=== PATIENT | female | born 1950 | race Caucasian/White ===

== ENCOUNTER 2018-01-17 09:47 | Outpatient (CLI) | payer OTHER, SELFPAY ==
--- NOTE | 2018-01-17 09:34 | DI.RAD_ITS ---
SYMPTOM/DIAGNOSIS: LT HIP PAIN LEFT HIP: Two views. There is mild narrowing of the joint space. There also appears to be mild spurring of the acetabulum of the left hip. The hip joint is otherwise well maintained. The bones are intact and normally mineralized. The soft tissues are unremarkable. IMPRESSION: Mild degenerative changes of the left hip.
== END 2018-01-17 10:07 ==
PROVIDERS: Visit Provider Student in an Organized Health Care Education/Training Program
DX: M25.552 Pain in left hip (principal); M16.12 Unilateral primary osteoarthritis, left hip
CPT/HCPCS: 73502

== ENCOUNTER 2018-01-18 01:24 | Outpatient (CLI) | payer OTHER, SELFPAY ==
--- NOTE | 2018-01-18 07:33 | DI.RAD_ITS ---
SYMPTOMS/DIAGNOSIS: LEFT HIP PAIN, M25.559 FLUOROSCOPY OF THE LEFT HIP: Fluoroscopy Time: 0.10 min Fluoroscopy was provided for Dr. Roth while performing a left hip injection. A single hard copy image shows the needle projecting in the left hip joint space with contrast injected into the joint space. Please see procedure note for details.
[2018-01-18] MEDS: Omnipaque 300 MG/ML 10 ML BTL IJ (11:15)
[2018-01-18] MEDS: Bupivacaine 0.5% Pres-Free 10 ML VIAL 5 ML IJ (11:15)
[2018-01-18] MEDS: methylPREDNISolone ACETATE 80 MG/ML VIAL IM (11:16)
--- NOTE | 2018-01-18 12:25 | W.PROCNOTE ---
Date of service: 01/18/18 Time of Service: 10:25 Procedure Note Date of procedure: 01/18/18 Procedure: Left Hip Injection with Fluoroscopic Guidance Surgeon/Proceduralist/Physician: Jerome Roth Procedure Diagnosis: Left hip pain, probable femoral acetabular impinge Procedure Indications: Inez has had persistent pain of the LEFT hip and groin. Noninvasive measures have been tried. To serve as both diagnostic and therapeutic, an injection under fluoroscopy was recommended. I had discussed the risks of the procedure and the patient elected to proceed. Procedure Description: Inez was greeted in the flouroscopy room. The correct side was identified and the consent was reviewed with the patient and signed. The patient was then placed in the supine position on the fluoroscopy table. The LEFT hip was then prepped with Chloraprep. The anterolateral injection starting point was identiifed by bony landmarks and fluoroscopy. The skin and soft tissue in the tract of the injection was anesthetized with 1% Lidocaine. A spinal needle was then inserted deep into the hip joint at the level of the lateral femoral neck under fluoroscopic guidance. A small amount of Omnipaque solution was injected to confirm intraarticular placement. Once confirmed, the hip was injected with 6cc of 0.5% Bupivicaine and 80mg of Depo-Medrol. A bandaid was placed on the injection site. The patient tolerated the procedure well and noted improvement in pre-injection pain.
== END 2018-01-18 01:44 ==
PROVIDERS: PCP Internal Medicine; Visit Provider Student in an Organized Health Care Education/Training Program
DX: M25.552 Pain in left hip (principal)
CPT/HCPCS: 20610; 77002; J1040

== ENCOUNTER 2020-07-13 16:01 | Outpatient (CLI) | payer OTHER, SELFPAY ==
--- NOTE | 2020-07-13 14:45 | DI.RAD_ITS ---
EXAM: XR ANKLE RT COMPLETE CLINICAL HISTORY: s/p fall 3 weeks ago, pain. TECHNIQUE: 2D digital imaging was performed. COMPARISON: No exams were available for comparison FINDINGS: BONES: There is deformity seen of the distal aspect of the right 5th metatarsal. It is partially inc luded on the images. This may represent a fracture or destructive changes. An x-ray of the right fo ot is recommended for further evaluation. No other fracture or dislocation is identified. There is a small calcaneal spur. There is an enthesophyte at the Achilles insertion site. No bony destructiv e lesion is seen. JOINTS: The ankle mortise is normally aligned. SOFT TISSUE: Normal. IMPRESSION: Deformity seen at the edge of the film involving the distal aspect of the right 5th metatarsal. This may represent a fracture or destructive changes. An x-ray of the right foot is recommended for furt her evaluation. DATA REPOSITORY: RADIATION DOSE DELIVERED:
--- NOTE | 2020-07-13 14:45 | DI.RAD_ITS ---
EXAM: XR ARTHRITIS SERIES CLINICAL HISTORY: eval hand pain. TECHNIQUE: 2D digital imaging was performed. COMPARISON: No exams were available for comparison FINDINGS: BONES: No acute fracture is present. There are mild degenerative changes seen of the hand particularl y at the PIP and DIP joints of the right hand. The MCP joints are well maintained. No periarticular osteopenia is present. JOINTS: No dislocation present. SOFT TISSUE: No soft tissue calcifications are seen. IMPRESSION: Mild degenerative changes of the hands, right greater than left. DATA REPOSITORY: RADIATION DOSE DELIVERED:
== END 2020-07-13 16:02 | disposition home or self-care (01) ==
LOC: DIORS 16:01
PROVIDERS: PCP Internal Medicine; Referring Provider Internal Medicine; Visit Provider Physician Assistant Surgical
DX: M79.641 Pain in right hand (principal); M79.642 Pain in left hand; M19.041 Primary osteoarthritis, right hand; M19.042 Primary osteoarthritis, left hand; M25.571 Pain in right ankle and joints of right foot; R93.7 Abnormal findings on diagnostic imaging of other parts of musculoskeletal system
CPT/HCPCS: 73120; 73610

== ENCOUNTER 2022-09-15 16:48 | Outpatient (REF) | payer OTHER, SELFPAY ==
[2022-09-15 20:16] LABS: Abs Immature Grans 0.01 10^3/uL (0.0-0.06); Absolute Basophil Count 0.04 10^3/uL (0.0-0.2); Absolute Eosinophil Count 0.14 10^3/uL (0.0-0.7); Absolute Monocyte Count 0.54 10^3/uL (0.1-0.8); Absolute Neutrophil Count 4.59 10^3/uL (1.2-6.7); Basophils % 0.5; Eosinophils % 1.7; HCT 42.9 % (36.0-46.0); Immature Grans % 0.1; Lymphocytes % 33.7; MCHC 32.6 % (32.0-36.0); MCV 92 fL (80-95); MPV 9.7 fL (8.0-11.0); Monocytes % 6.7; Neutrophils % 57.3; Platelet Count 310 10^3/uL (130-400); RBC 4.67 10^6/uL (3.93-5.22); RDW 14.1 % (11.7-14.6); RDW-SD 47.4 fL; WBC 8.02 10^3/uL (4.4-10.8)
[2022-09-15 20:18] LABS: ESR 29 mm/hr (0-30)
[2022-09-15 20:24] LABS: ALT 39 U/L (14-59); AST 28 U/L (15-37); Alkaline Phosphatase 99 U/L (46-116); Anion Gap 10.6 mmol/L (3-11); BUN 12 mg/dL (7-18); Bilirubin, Total 0.3 mg/dL (0.2-1.0); CO2 24.4 mmol/L (21.0-32.0); CREATININE 0.8 mg/dL (0.55-1.02); Calcium 9.1 mg/dL (8.5-10.1); Calculated LDL 148 mg/dL (<100); Chloride 106 mmol/L (98-107); Cholesterol 246 mg/dL (<200); Estimated GFR 78.72 (mL/min/1.73m2); Glucose 85 mg/dL (74-106); HDL Cholesterol 70 mg/dL (40-60); Sodium 141 mmol/L (136-145); Total Protein 7.4 g/dL (6.4-8.2); Triglyceride 142 mg/dL (<150)
== END 2022-09-15 16:49 | disposition home or self-care (01) ==
LOC: NCHCN 16:48
PROVIDERS: PCP Internal Medicine; Visit Provider Family Medicine
DX: E78.5 Hyperlipidemia, unspecified (principal); M06.9 Rheumatoid arthritis, unspecified; Z72.0 Tobacco use
CPT/HCPCS: 80053; 80061; 85652; 85025

== ENCOUNTER 2022-09-29 01:03 | Outpatient (CLI) | payer OTHER, SELFPAY ==
--- NOTE | 2022-09-29 | DI.CTLCSR_ITS ---
Exam(s) CT CHEST LUNG CANCER SCREEN EXAM: CT CHEST LUNG CANCER SCREEN CLINICAL HISTORY: TOBACCO USE Z72.0 SCREENING FOR LUNG CANCER TECHNIQUE: Imaging Protocol: Axial computed tomography images with coronal and sagittal reformatted images were created and reviewed. Low dose screening protocol. COMPARISON: No exams were available for comparison FINDINGS: Tracheobronchial tree: No bronchiectasis or mucus plugging.. Mediastinum and Renee: No dominant adenopathy or fluid collection. Pulmonary parenchyma: No consolidation or dominant measurable mass. Minimal emphysematous changes. I nterstitial changes greater peripherally at the lung bases. Lung Nodules: None. Pleura: No effusion. No pneumothorax. Heart: The heart is not dilated. Mild coronary artery calcifications are seen. Aorta: Thoracic aorta non-dilated. Minimal atherosclerotic changes. Upper abdomen: Unremarkable. Bones: Unremarkable for age. Soft Tissues: Unremarkable. IMPRESSION: No suspicious pulmonary nodules. Lung RADS Cat 1 - Negative: No nodules and definitely benign nodules Lung-RADS 1.0 CATEGORIES: Category 0 - Prior chest CT exam(s) being located for comparison. Category 1 - Annual screening in 12 months. No nodules or definitely benign nodules. Category 2 - Annual screening in 12 months. Benign appearance. Nodules with low likelihood of becomin g active cancer. Category 3 - 6-month follow-up. Probably benign. Short-term follow-up suggested. Nodules with low lik elihood of becoming active cancer. Category 4A - 3-month follow-up and CT/PET if >8 mm in size. Suspicious finding. Findings which requi re additional testing. Category 4B - Findings which require additional testing and tissue sampling. Category 4X - Category 3 or 4 nodules with additional features or imaging findings that increases the suspicion of malignancy. Modifier S- Potentially clinically significant findings (non lung cancer) RADIATION DOSE DELIVERED: 74.01mGy.cm Total DLP DATA REPOSITORY: All CT scans at this facility are submitted to the National Radiology Data Registry (NRDR) Dose Index Registry (DIR) with the [employer] ([employer]). RADIATION OPTIMIZATION: All CT scans at this facility use at least one of these dose optimization te chniques: automated exposure control; mA and/or kV adjustment per patient size (includes targeted exa ms where dose is matched to clinical indication); or iterative reconstruction.
--- NOTE | 2022-09-29 11:52 | DI.MAMMO_ITS ---
Exam(s) MAMMO SCREENING EXAM: MAMMO SCREENING CLINICAL HISTORY: SCREENING FOR BREAST CANCER Z12.39 TECHNIQUE: Mammograms were interpreted according to the usual protocol including computer analysis w [employer] CAD system, tomosynthesis and C-view imaging. COMPARISON: The 2019 and 2020 outside exams FINDINGS: The breasts are composed of scattered fibroglandular densities, Breast Density category B. No suspicious masses or suspicious microcalcifications are seen. No skin thickening or abnormal axillary lymph nodes are seen. There has been no significant change from prior exams. IMPRESSION: BI-RADS Category 1, Negative mammogram Yearly screening mammography is recommended. Breast Density - Category B, scattered fibroglandular densities. A negative radiographic report should not delay biopsy if a dominant or clinically suspicious mass is present. Up to ten percent of cancers are not identified on mammography. A negative report may reinforce clinical impression. Adenosis and dense breasts may obscure an underlying neoplasm. False positive reports average 6 to 10%. Patient will receive a letter notifying them of these results.
== END 2022-09-29 01:23 ==
LOC: DI 01:04
PROVIDERS: PCP Internal Medicine; Visit Provider Family Medicine
DX: Z12.31 Encounter for screening mammogram for malignant neoplasm of breast (principal); Z13.820 Encounter for screening for osteoporosis; Z72.0 Tobacco use
CPT/HCPCS: 71271; 77063; 77067

== ENCOUNTER 2023-03-17 16:28 | Outpatient (REF) | payer OTHER, SELFPAY ==
[2023-03-17 16:17] LABS: Calculated LDL 104 mg/dL (<100); Cholesterol 204 mg/dL (<200); HDL Cholesterol 80 mg/dL (40-60); TSH 1.27 uIU/mL (0.36-3.74); Triglyceride 101 mg/dL (<150)
== END 2023-03-17 16:29 | disposition home or self-care (01) ==
LOC: NCHCN 16:28
PROVIDERS: PCP Family Medicine; Visit Provider Family Medicine
DX: E78.5 Hyperlipidemia, unspecified (principal); G62.9 Polyneuropathy, unspecified
CPT/HCPCS: 80061; 84443

== ENCOUNTER → 2023-09-21 00:37 | Outpatient (CLI) | payer MEDICARE, SELFPAY ==
--- NOTE | 2023-09-21 | DI.DEXA_ITS ---
Exam(s) XR DEXA BONE DENSITY W/WO MAYDA EXAM: XR DEXA BONE DENSITY W/WO MAYDA CLINICAL HISTORY: HALFWAY USE SYSTEMIC STEROID,z79.52 TECHNIQUE: COMPARISON: CR XR hip LT complete AP pelvis from 01/17/2018 FINDINGS: Lateral Spine Image: Unremarkable. No compression deformities identified. Left hip: Total T-Score: -1.1 Total Z-Score: 0.5 T- and Z-scores: Findings are consistent with osteopenia. There is no evidence of osteoporosis. Lumbar Spine: Total T-Score: -1.3 Total Z-Score: 1.0 T- and Z-scores: Findings are consistent with osteopenia. There is no evidence of osteoporosis. IMPRESSION: No evidence of osteoporosis.
--- NOTE | 2023-09-21 15:03 | DI.RAD_ITS ---
Exam(s) XR SACROILIAC JOINTS XR HIP LT COMPLETE AP PELVIS EXAM: XR HIP LT COMPLETE AP PELVIS and sacroiliac joints CLINICAL HISTORY: LT HIP PAIN, M25.552. TECHNIQUE: 2D digital imaging was performed of the sacroiliac joints and left hip. Five views were obtained. AP pelvis and lateral left hip views were obtained. COMPARISON: CR XR hip LT complete AP pelvis from 01/17/2018 FINDINGS: BONES: No acute fracture is present. No bony destructive lesion is seen. JOINTS: No dislocation present. There are marked degenerative changes seen now in the left hip with n ear complete loss of the superior joint space. There are osteophytes at the acetabular roof and the left femoral head. The right hip is well maintained. The sacroiliac joints are well maintained. No erosions or ankylosis is present. SOFT TISSUE: Normal. IMPRESSION: 1. Marked degenerative changes seen in the left hip. 2. Unremarkable sacroiliac joints. DATA REPOSITORY: RADIATION DOSE DELIVERED:
== END ==
PROVIDERS: PCP Family Medicine; Visit Provider Family Medicine
DX: Z79.52 Long term (current) use of systemic steroids (principal); M25.552 Pain in left hip; M16.12 Unilateral primary osteoarthritis, left hip
CPT/HCPCS: 77080; 72202; 73502

== ENCOUNTER 2023-10-09 04:35 | Outpatient (CLI) | payer MEDICARE, SELFPAY ==
[2023-10-09 12:21] LABS: Abs Immature Grans 0.03 10^3/uL (0.0-0.06); Absolute Basophil Count 0.07 10^3/uL (0.0-0.2); Absolute Eosinophil Count 0.27 10^3/uL (0.0-0.7); Absolute Lymphocyte Count 2.66 10^3/uL (1.2-3.4); Absolute Monocyte Count 0.77 10^3/uL (0.1-0.8); Absolute Neutrophil Count 5.71 10^3/uL (1.2-6.7); Basophils % 0.7 %; Eosinophils % 2.8 %; HCT 42.7 % (36.0-46.0); HGB 14.1 g/dL (11.2-15.7); Immature Grans % 0.3 %; MCH 30.9 pg (27.0-33.0); MCV 94 fL (80-95); Monocytes % 8.1 %; Neutrophils % 60.1 %; Platelet Count 328 10^3/uL (130-400); RBC 4.56 10^6/uL (3.93-5.22); RDW 15.7 % (11.7-14.6); RDW-SD 53.1 fL; WBC 9.51 10^3/uL (4.4-10.8)
[2023-10-09 12:34] LABS: ALT 42 U/L (14-59); AST 26 U/L (15-37); Albumin 3.7 g/dL (3.4-5.0); Alkaline Phosphatase 100 U/L (46-116); Anion Gap 8.7 mmol/L (3-11); BUN 12 mg/dL (7-18); Bilirubin, Total 0.77 mg/dL (0.2-1.0); CO2 29.3 mmol/L (21.0-32.0); Calcium 9.5 mg/dL (8.5-10.1); Chloride 106 mmol/L (98-107); Estimated GFR 59.86 (mL/min/1.73m2); Glucose 87 mg/dL (74-106); Potassium 3.9 mmol/L (3.5-5.1); Sodium 144 mmol/L (136-145); Total Protein 7.5 g/dL (6.4-8.2)
== END 2023-10-09 04:36 | disposition home or self-care (01) ==
LOC: LOS 04:35
PROVIDERS: PCP Family Medicine; Visit Provider Student in an Organized Health Care Education/Training Program
DX: M06.9 Rheumatoid arthritis, unspecified (principal); R06.02 Shortness of breath; Z78.0 Asymptomatic menopausal state; M85.80 Other specified disorders of bone density and structure, unspecified site; Z79.52 Long term (current) use of systemic steroids; M79.671 Pain in right foot; M79.672 Pain in left foot; M79.641 Pain in right hand; M79.642 Pain in left hand
CPT/HCPCS: 36415; 80053; 85025

== ENCOUNTER 2023-11-01 01:53 | Outpatient (RCR) | payer MEDICARE, SELFPAY ==
[2023-10-20] VITALS (7 sets, daily range): BP systolic 117–126; BP diastolic 76–85; PULSE 73–84; RESP 16–17; TEMP 36–36.4; O2SAT 97–99
[2023-10-20] MEDS: diphenhydrAMINE 25 MG CAP PO (09:19)
[2023-10-20] MEDS: Acetaminophen 325 MG TAB 650 MG PO (09:19)
[2023-10-20 09:26] LABS: HCT 41.6 % (36.0-46.0); HGB 13.7 g/dL (11.2-15.7); MCH 31.3 pg (27.0-33.0); MCHC 32.9 % (32.0-36.0); MCV 95 fL (80-95); MPV 8.4 fL (8.0-11.0); Platelet Count 284 10^3/uL (130-400); RBC 4.38 10^6/uL (3.93-5.22); RDW 15.7 % (11.7-14.6)
[2023-10-20] MEDS: methylPREDNISolone SUCC 125 MG VIAL 60 MG IVP (09:40)
[2023-10-20 09:43] LABS: ALT 53 U/L (14-59); AST 34 U/L (15-37); Albumin 3.5 g/dL (3.4-5.0); Alkaline Phosphatase 92 U/L (46-116); Anion Gap 8.5 mmol/L (3-11); BUN 13 mg/dL (7-18); CO2 26.5 mmol/L (21.0-32.0); CREATININE 0.9 mg/dL (0.55-1.02); Calcium 8.8 mg/dL (8.5-10.1); Chloride 107 mmol/L (98-107); Estimated GFR 67.92 (mL/min/1.73m2); Glucose 110 mg/dL (74-106); Potassium 3.5 mmol/L (3.5-5.1); Sodium 142 mmol/L (136-145); Total Protein 7.1 g/dL (6.4-8.2)
[2023-10-20] MEDS: inFLIXimab 300 MG in Normal Saline 250 ML 125 MG IVPB (09:45)
[2023-10-20] MEDS: Normal Saline Flush 10 ML SYR IVP (09:52)
[2023-11-01] VITALS (7 sets, daily range): BP systolic 92–123; BP diastolic 51–86; PULSE 82–96; RESP 16; TEMP 36.3–36.8; O2SAT 96–99
[2023-11-01] MEDS: diphenhydrAMINE 25 MG CAP PO (12:30)
[2023-11-01] MEDS: Normal Saline Flush 10 ML SYR IVP (12:31)
[2023-11-01] MEDS: Acetaminophen 325 MG TAB 650 MG PO (12:31)
[2023-11-01] MEDS: methylPREDNISolone SUCC 125 MG VIAL 60 MG IVP (12:31)
[2023-11-01] MEDS: inFLIXimab 300 MG in Normal Saline 250 ML 125 MG IVPB (13:10)
== END 2023-11-08 23:59 | disposition home or self-care (01) ==
LOC: INF 01:53
PROVIDERS: PCP Family Medicine; Visit Provider Family Medicine
DX: M06.09 Rheumatoid arthritis without rheumatoid factor, multiple sites (principal)
CPT/HCPCS: 80053; 85027; 96365; 96366; J1745; J2919

== ENCOUNTER 2023-11-21 02:19 | Outpatient (RCR) | payer MEDICARE, SELFPAY ==
[2023-11-09 00:19] VITALS: BP 107/70; PULSE 83; RESP 16; TEMP 36.5
[2023-11-21] VITALS (7 sets, daily range): BP systolic 101–123; BP diastolic 70–82; PULSE 76–95; RESP 16–17; TEMP 36.3–37.2; O2SAT 97–99
[2023-11-21] MEDS: Normal Saline Flush 10 ML SYR IVP (12:12)
[2023-11-21] MEDS: methylPREDNISolone SUCC 125 MG VIAL 60 MG IVP (12:12)
[2023-11-21] MEDS: diphenhydrAMINE 25 MG CAP PO (12:12)
[2023-11-21] MEDS: Acetaminophen 325 MG TAB 650 MG PO (12:12)
== END 2023-12-09 23:59 | disposition home or self-care (01) ==
LOC: INF 02:19
PROVIDERS: PCP Family Medicine; Visit Provider Family Medicine
DX: M06.09 Rheumatoid arthritis without rheumatoid factor, multiple sites (principal)
CPT/HCPCS: 96365; 96366; 96374; J2919; Q5104

== ENCOUNTER → 2023-11-23 10:51 | Outpatient (BNVA) | payer MEDICARE, SELFPAY | PROVIDERS: PCP Family Medicine; Referring Provider Family Medicine; Visit Provider Student in an Organized Health Care Education/Training Program | DX: M16.12 Unilateral primary osteoarthritis, left hip (principal); M70.62 Trochanteric bursitis, left hip; M76.32 Iliotibial band syndrome, left leg | CPT/HCPCS: 99203 ==

== ENCOUNTER 2024-01-08 02:44 | Outpatient (RCR) | payer MEDICARE, SELFPAY ==
[2023-12-10 00:09] VITALS: BP 107/70; PULSE 83; RESP 16; TEMP 36.5
[2024-01-08] MEDS: methylPREDNISolone SUCC 125 MG VIAL 60 MG IVP (09:29)
[2024-01-08] MEDS: diphenhydrAMINE 25 MG CAP PO (09:30)
[2024-01-08] MEDS: Acetaminophen 325 MG TAB 650 MG PO (09:30)
[2024-01-08 09:44] LABS: HCT 42.9 % (36.0-46.0); HGB 14.2 g/dL (11.2-15.7); MCH 31.8 pg (27.0-33.0); MCHC 33.1 % (32.0-36.0); MCV 96 fL (80-95); Platelet Count 268 10^3/uL (130-400); RBC 4.46 10^6/uL (3.93-5.22); RDW 16.1 % (11.7-14.6); RDW-SD 54.9 fL; WBC 10.85 10^3/uL (4.4-10.8)
[2024-01-08 10:00] LABS: ALT 39 U/L (14-59); AST 33 U/L (15-37); Albumin 3.5 g/dL (3.4-5.0); Alkaline Phosphatase 86 U/L (46-116); Anion Gap 11.4 mmol/L (3-11); BUN 14 mg/dL (7-18); Bilirubin, Total 0.56 mg/dL (0.2-1.0); CO2 28.6 mmol/L (21.0-32.0); Calcium 9.3 mg/dL (8.5-10.1); Chloride 105 mmol/L (98-107); Estimated GFR 59.86 (mL/min/1.73m2); Glucose 109 mg/dL (74-106); Potassium 3.8 mmol/L (3.5-5.1); Sodium 145 mmol/L (136-145)
[2024-01-08 10:07] VITALS: BP 99/66; PULSE 78; RESP 16; TEMP 36; O2SAT 96
[2024-01-08 10:15] VITALS: BP 103/69; PULSE 80; RESP 16; TEMP 36; O2SAT 98
[2024-01-08 10:30] VITALS: BP 107/69; PULSE 69; RESP 19; TEMP 36.1; O2SAT 100
[2024-01-08 10:45] VITALS: BP 106/73; PULSE 76; RESP 18; TEMP 36.5; O2SAT 98
[2024-01-08 11:05] VITALS: BP 107/74; PULSE 78; RESP 18; TEMP 36.2; O2SAT 98
[2024-01-08 12:15] VITALS: BP 115/80; PULSE 77; RESP 18; TEMP 36.3; O2SAT 99
[2024-01-08] MEDS: Normal Saline Flush 10 ML SYR IVP (12:27)
== END 2024-01-08 23:59 | disposition home or self-care (01) ==
LOC: INF 02:44
PROVIDERS: PCP Family Medicine; Visit Provider Family Medicine
DX: M06.09 Rheumatoid arthritis without rheumatoid factor, multiple sites (principal)
CPT/HCPCS: 80053; 85027; 96365; 96366; 96374; J2919; Q5104

== ENCOUNTER → 2024-01-25 10:44 | Outpatient (BNVA) | payer MEDICARE, SELFPAY | PROVIDERS: PCP Family Medicine; Referring Provider Family Medicine; Visit Provider Student in an Organized Health Care Education/Training Program | DX: M16.12 Unilateral primary osteoarthritis, left hip (principal) | CPT/HCPCS: 20611; J1010 ==

== ENCOUNTER → 2024-02-12 10:58 | Outpatient (BNVA) | payer MEDICARE, SELFPAY | PROVIDERS: PCP Family Medicine; Referring Provider Family Medicine; Visit Provider Psychiatry & Neurology Neurology | DX: G62.9 Polyneuropathy, unspecified (principal) | CPT/HCPCS: 99215 ==

== ENCOUNTER 2024-02-20 03:28 | Outpatient (RCR) | payer MEDICARE, SELFPAY ==
[2024-01-09 00:07] VITALS: BP 107/70; PULSE 83; RESP 16; TEMP 36.5
[2024-02-20] VITALS (7 sets, daily range): BP systolic 108–129; BP diastolic 57–85; PULSE 70–85; RESP 16–17; TEMP 35–36.5; O2SAT 95–100
[2024-02-20] MEDS: methylPREDNISolone SUCC 125 MG VIAL 60 MG IVP (10:10)
[2024-02-20] MEDS: Normal Saline Flush 10 ML SYR IVP (10:11)
[2024-02-20] MEDS: diphenhydrAMINE 25 MG CAP PO (10:11)
[2024-02-20 11:03] LABS: Vitamin B12 1513 pg/mL (193-986)
[2024-02-20 11:20] LABS: Hemoglobin A1C 5.6 % (<5.7)
[2024-02-21 13:32] LABS: Albumin 63.1 % (55.8-66.1); Albumin g/dL 4.7 g/dL (3.6-5.2); Total Protein 7.5 g/dL (6.3-8.2)
== END 2024-03-09 23:59 | disposition home or self-care (01) ==
LOC: INF 03:28
PROVIDERS: Psychiatry & Neurology Neurology; PCP Family Medicine; Visit Provider Family Medicine
DX: M06.09 Rheumatoid arthritis without rheumatoid factor, multiple sites (principal); G62.9 Polyneuropathy, unspecified; R73.9 Hyperglycemia, unspecified
CPT/HCPCS: 36415; 96365; 96366; 96375; 82607; 83036; 84165; J2919; Q5104

== ENCOUNTER 2024-03-26 02:46 | Outpatient (RCR) | payer MEDICARE, SELFPAY ==
[2024-03-10 00:18] VITALS: BP 107/70; PULSE 83; RESP 16; TEMP 36.5
[2024-03-26] VITALS (7 sets, daily range): BP systolic 94–118; BP diastolic 53–79; PULSE 68–85; RESP 14–18; TEMP 36–36.6; O2SAT 96–98
[2024-03-26] MEDS: methylPREDNISolone SUCC 125 MG VIAL 60 MG IVP (11:12)
[2024-03-26] MEDS: diphenhydrAMINE 25 MG CAP PO (11:12)
[2024-03-26] MEDS: Normal Saline Flush 10 ML SYR IVP (11:54)
[2024-03-31 08:25] LABS: Pyridoxal 5-Phosphate (PLP), P 15 mcg/L (5-50)
== END 2024-04-09 23:59 | disposition home or self-care (01) ==
LOC: INF 02:46
PROVIDERS: PCP Family Medicine; Visit Provider Family Medicine
DX: G62.9 Polyneuropathy, unspecified (principal); M06.09 Rheumatoid arthritis without rheumatoid factor, multiple sites
CPT/HCPCS: 36415; 96365; 96366; 84207; J2919; Q5104

== ENCOUNTER → 2024-05-02 08:58 | Outpatient (BNVA) | payer MEDICARE, SELFPAY | PROVIDERS: PCP Family Medicine; Referring Provider Family Medicine; Visit Provider Psychiatry & Neurology Neurology | DX: G62.9 Polyneuropathy, unspecified (principal) | CPT/HCPCS: 95908; 95923; 99213 ==

== ENCOUNTER 2024-05-07 02:52 | Outpatient (RCR) | payer MEDICARE, SELFPAY ==
[2024-04-10 00:10] VITALS: BP 107/70; PULSE 83; RESP 16; TEMP 36.5
[2024-05-07] VITALS (7 sets, daily range): BP systolic 106–120; BP diastolic 66–81; PULSE 79–86; RESP 14–16; TEMP 36.5–36.7; O2SAT 95–100
[2024-05-07] MEDS: diphenhydrAMINE 25 MG CAP PO (10:19)
[2024-05-07] MEDS: Acetaminophen 325 MG TAB 650 MG PO (10:20)
[2024-05-07] MEDS: methylPREDNISolone SUCC 125 MG VIAL 60 MG IVP (10:24)
[2024-05-07] MEDS: Normal Saline Flush 10 ML SYR IVP (10:27)
== END 2024-05-10 23:59 | disposition home or self-care (01) ==
LOC: INF 02:52
PROVIDERS: PCP Family Medicine; Visit Provider Family Medicine
DX: M06.09 Rheumatoid arthritis without rheumatoid factor, multiple sites (principal)
CPT/HCPCS: 96365; 96366; 96374; 96375; J2919; Q5104

== ENCOUNTER 2024-05-16 01:50 | Outpatient (CLI) | payer MEDICARE, SELFPAY ==
[2024-05-16 11:06] LABS: Abs Immature Grans 0.04 10^3/uL (0.0-0.06); Absolute Basophil Count 0.05 10^3/uL (0.0-0.2); Absolute Monocyte Count 0.85 10^3/uL (0.1-0.8); Absolute Neutrophil Count 8.04 10^3/uL (1.2-6.7); Basophils % 0.5 %; Eosinophils % 0.9 %; HGB 14.7 g/dL (11.2-15.7); Immature Grans % 0.4 %; Lymphocytes % 14.2 %; MCHC 32.7 % (32.0-36.0); MCV 101 fL (80-95); MPV 8.5 fL (8.0-11.0); Platelet Count 257 10^3/uL (130-400); RBC 4.46 10^6/uL (3.93-5.22); RDW 14.2 % (11.7-14.6); RDW-SD 52.7 fL; WBC 10.58 10^3/uL (4.4-10.8)
[2024-05-16 11:39] LABS: ALT 41 U/L (14-59); AST 25 U/L (15-37); Albumin 3.8 g/dL (3.4-5.0); Alkaline Phosphatase 90 U/L (46-116); Anion Gap 5.1 mmol/L (3-11); BUN 13 mg/dL (7-18); Bilirubin, Total 0.58 mg/dL (0.2-1.0); CO2 31.9 mmol/L (21.0-32.0); Calcium 9.6 mg/dL (8.5-10.1); Chloride 107 mmol/L (98-107); Estimated GFR 59.49 (mL/min/1.73m2); Glucose 101 mg/dL (74-106); Potassium 4.2 mmol/L (3.5-5.1); Sodium 144 mmol/L (136-145); Total Protein 7.2 g/dL (6.4-8.2)
[2024-05-20 23:07] LABS: Pyridoxal 5-Phosphate (PLP), P 46 mcg/L (5-50)
== END 2024-05-16 01:51 | disposition home or self-care (01) ==
PROVIDERS: PCP Family Medicine; Visit Provider Student in an Organized Health Care Education/Training Program
DX: M06.9 Rheumatoid arthritis, unspecified (principal); G62.9 Polyneuropathy, unspecified; R06.02 Shortness of breath; Z78.0 Asymptomatic menopausal state; M85.80 Other specified disorders of bone density and structure, unspecified site; Z79.52 Long term (current) use of systemic steroids; M79.671 Pain in right foot; M79.672 Pain in left foot; M79.641 Pain in right hand; M79.642 Pain in left hand
CPT/HCPCS: 36415; 80053; 84207; 85025

== ENCOUNTER 2024-06-18 02:43 | Outpatient (RCR) | payer MEDICARE, SELFPAY ==
[2024-06-18 09:20] VITALS: BP 109/76; PULSE 87; RESP 15; TEMP 36.3; O2SAT 97
[2024-06-18] MEDS: Acetaminophen 325 MG TAB 650 MG PO (09:20)
[2024-06-18] MEDS: diphenhydrAMINE 25 MG CAP PO (09:24)
[2024-06-18] MEDS: methylPREDNISolone SUCC 125 MG VIAL 60 MG IVP (09:26)
[2024-06-18 10:34] VITALS: BP 109/71; PULSE 89; RESP 14; TEMP 36.3; O2SAT 96
[2024-06-18 10:45] VITALS: BP 106/70; PULSE 79; RESP 14; TEMP 36.4; O2SAT 97
[2024-06-18 11:05] VITALS: BP 114/72; PULSE 79; RESP 14; TEMP 36.4; O2SAT 96
[2024-06-18 11:34] VITALS: BP 103/69; PULSE 79; RESP 12; TEMP 36.1; O2SAT 97
[2024-06-18] MEDS: Normal Saline Flush 5 ML SYR IVP (11:38)
== END 2024-07-08 23:59 | disposition home or self-care (01) ==
LOC: INF 02:43
PROVIDERS: PCP Family Medicine; Visit Provider Family Medicine
DX: M06.09 Rheumatoid arthritis without rheumatoid factor, multiple sites (principal)
CPT/HCPCS: 96365; 96366; J2919; Q5104

== ENCOUNTER 2024-07-05 00:47 | Outpatient (CLI) | payer MEDICARE, SELFPAY ==
--- NOTE | 2024-07-05 11:58 | DI.MAMMO_ITS ---
Exam(s) MAMMO SCREENING EXAM: MAMMO SCREENING CLINICAL HISTORY: SCREENING, Z12.39. TECHNIQUE: Bilateral full field digital CC and MLO mammographic images were obtained with 3D tomosyn thesis and utilizing computer aided detection (CAD). COMPARISON: Prior mammograms were reviewed. FINDINGS: There has been no significant change in the appearance and distribution of the fibroglandular tissue. There are no new spiculated masses nor malignant appearing microcalcification groups. There is no significant architectural distortion nor skin thickening-retraction. IMPRESSION: No radiographic evidence of malignancy. BI-RADS Category 1 - Negative Breast Density - Category B - Scattered areas of fibroglandular density Breast density Category C or D implies that the patient has dense breast tissue. Dense breast tissue can make it harder to find cancer on a mammogram. Dense breast tissue is also associated with an incr eased risk of breast cancer. This information about the result of the mammogram report was provided to the patient to raise their awareness. Use this report when you speak with the patient about their risks for breast cancer, which includes their family history. At that time, you may recommend additional screening tests (Ultrasoun d or MRI) as these tests may add significant information. A negative radiographic report should not delay biopsy if a dominant or clinically suspicious mass is present. Up to ten percent of cancers are not identified on mammography. A negative report may reinforce clinical impression. Adenosis and dense breasts may obscure an underlying neoplasm. False positive reports average 6 to 10%. Patient will receive a letter notifying them of these results.
== END 2024-07-05 01:07 ==
LOC: DI 00:47
PROVIDERS: PCP Family Medicine; Visit Provider Family Medicine
DX: Z12.31 Encounter for screening mammogram for malignant neoplasm of breast (principal); R92.323 Mammographic fibroglandular density, bilateral breasts
CPT/HCPCS: 77063; 77067

== ENCOUNTER 2024-08-01 01:59 | Outpatient (RCR) | payer MEDICARE, SELFPAY ==
[2024-08-01] VITALS (7 sets, daily range): BP systolic 105–126; BP diastolic 73–81; PULSE 79–86; RESP 18–19; TEMP 36–36.1; O2SAT 95–98
[2024-08-01] MEDS: Acetaminophen 325 MG TAB 650 MG PO (10:13)
[2024-08-01] MEDS: methylPREDNISolone SUCC 125 MG VIAL 60 MG IVP (10:14)
[2024-08-01] MEDS: diphenhydrAMINE 25 MG CAP PO (10:14)
[2024-08-01] MEDS: Normal Saline Flush 5 ML SYR IVP (10:14)
[2024-08-01 10:47] LABS: Abs Immature Grans 0.03 10^3/uL (0.0-0.06); Absolute Basophil Count 0.06 10^3/uL (0.0-0.2); Absolute Eosinophil Count 0.37 10^3/uL (0.0-0.7); Absolute Lymphocyte Count 2.28 10^3/uL (1.2-3.4); Absolute Monocyte Count 0.91 10^3/uL (0.1-0.8); Absolute Neutrophil Count 5.16 10^3/uL (1.2-6.7); Basophils % 0.7 %; Eosinophils % 4.2 %; HCT 47.2 % (36.0-46.0); HGB 15.9 g/dL (11.2-15.7); Immature Grans % 0.3 %; Lymphocytes % 25.9 %; MCH 32.3 pg (27.0-33.0); MCHC 33.7 % (32.0-36.0); MCV 96 fL (80-95); MPV 8.7 fL (8.0-11.0); Monocytes % 10.3 %; Neutrophils % 58.6 %; Platelet Count 269 10^3/uL (130-400); RBC 4.92 10^6/uL (3.93-5.22); RDW 14.4 % (11.7-14.6); RDW-SD 49.7 fL; WBC 8.81 10^3/uL (4.4-10.8)
[2024-08-01 11:03] LABS: ALT 39 U/L (14-59); AST 25 U/L (15-37); Albumin 3.9 g/dL (3.4-5.0); Alkaline Phosphatase 97 U/L (46-116); Anion Gap 12.1 mmol/L (3-11); BUN 22 mg/dL (7-18); Bilirubin, Total 0.7 mg/dL (0.2-1.0); CO2 27.9 mmol/L (21.0-32.0); Calcium 9.6 mg/dL (8.5-10.1); Chloride 106 mmol/L (98-107); Estimated GFR 59.49 (mL/min/1.73m2); Glucose 91 mg/dL (74-106); Potassium 3.6 mmol/L (3.5-5.1); Sodium 146 mmol/L (136-145); Total Protein 7.6 g/dL (6.4-8.2)
== END 2024-08-07 23:59 | disposition home or self-care (01) ==
LOC: INF 01:59
PROVIDERS: Student in an Organized Health Care Education/Training Program; PCP Family Medicine; Visit Provider Family Medicine
DX: M06.09 Rheumatoid arthritis without rheumatoid factor, multiple sites (principal)
CPT/HCPCS: 36415; 80053; 96365; 96366; 85025; J2919; Q5104

== ENCOUNTER → 2024-08-07 13:40 | Outpatient (BNVA) | payer MEDICARE, SELFPAY | PROVIDERS: PCP Family Medicine; Referring Provider Family Medicine; Visit Provider Physician Assistant | DX: M16.12 Unilateral primary osteoarthritis, left hip (principal) | CPT/HCPCS: 20611; J1010 ==

== ENCOUNTER 2024-09-12 03:16 | Outpatient (RCR) | payer MEDICARE, SELFPAY ==
[2024-09-12] VITALS (7 sets, daily range): BP systolic 106–123; BP diastolic 70–78; PULSE 71–85; RESP 18–19; TEMP 36.1–36.4; O2SAT 96–98
[2024-09-12] MEDS: Acetaminophen 325 MG TAB 650 MG PO (10:12)
[2024-09-12] MEDS: diphenhydrAMINE 25 MG CAP PO (10:13)
[2024-09-12] MEDS: methylPREDNISolone SUCC 125 MG VIAL 60 MG IVP (10:14)
[2024-09-12] MEDS: Normal Saline Flush 10 ML SYR IVP (11:13)
== END 2024-10-07 23:59 | disposition home or self-care (01) ==
LOC: INF 03:16
PROVIDERS: PCP Family Medicine; Visit Provider Family Medicine
DX: M06.09 Rheumatoid arthritis without rheumatoid factor, multiple sites (principal)
CPT/HCPCS: 96365; 96366; J2919; Q5104

== ENCOUNTER 2024-10-24 01:13 | Outpatient (RCR) | payer MEDICARE, SELFPAY ==
[2024-10-24] VITALS (7 sets, daily range): BP systolic 116–134; BP diastolic 75–92; PULSE 71–80; RESP 18–20; TEMP 35.7–36.4; O2SAT 95–100
[2024-10-24] MEDS: diphenhydrAMINE 25 MG CAP PO (10:35)
[2024-10-24] MEDS: Acetaminophen 325 MG TAB 650 MG PO (10:35)
[2024-10-24] MEDS: Normal Saline Flush 10 ML SYR IVP (10:36)
[2024-10-24] MEDS: Water,Injection,Bacteriostatic 30 ML VIAL (10:36)
[2024-10-24] MEDS: methylPREDNISolone SUCC 125 MG VIAL 60 MG IVP (10:36)
[2024-10-24 11:19] LABS: Abs Immature Grans 0.03 10^3/uL (0.0-0.06); HCT 40.6 % (36.0-46.0); HGB 13.3 g/dL (11.2-15.7); Immature Grans % 0.3 %; MCH 31.7 pg (27.0-33.0); MCHC 32.8 % (32.0-36.0); MCV 97 fL (80-95); MPV 9.1 fL (8.0-11.0); Platelet Count 269 10^3/uL (130-400); RBC 4.20 10^6/uL (3.93-5.22); RDW 14.6 % (11.7-14.6); RDW-SD 51.2 fL; WBC 9.14 10^3/uL (4.4-10.8)
[2024-10-24 11:38] LABS: ALT 30 U/L (14-59); AST 17 U/L (15-37); Albumin 3.4 g/dL (3.4-5.0); Alkaline Phosphatase 86 U/L (46-116); Anion Gap 11.5 mmol/L (3-11); BUN 19 mg/dL (7-18); Bilirubin, Total 0.6 mg/dL (0.2-1.0); CO2 24.5 mmol/L (21.0-32.0); Calcium 8.8 mg/dL (8.5-10.1); Chloride 106 mmol/L (98-107); Estimated GFR 77.75 (mL/min/1.73m2); Glucose 95 mg/dL (74-106); Potassium 3.8 mmol/L (3.5-5.1); Sodium 142 mmol/L (136-145); Total Protein 6.6 g/dL (6.4-8.2)
== END 2024-11-07 23:59 | disposition home or self-care (01) ==
LOC: INF 01:13
PROVIDERS: Student in an Organized Health Care Education/Training Program; PCP Family Medicine; Visit Provider Family Medicine
DX: M06.09 Rheumatoid arthritis without rheumatoid factor, multiple sites (principal)
CPT/HCPCS: 80053; 96365; 96366; 96374; 96375; 85025; J2919; Q5104

== ENCOUNTER → 2024-11-08 10:56 | Outpatient (BNVA) | payer MEDICARE, SELFPAY | PROVIDERS: PCP Family Medicine; Referring Provider Family Medicine; Visit Provider Physician Assistant | DX: M16.12 Unilateral primary osteoarthritis, left hip (principal) | CPT/HCPCS: 20611; J1010 ==

== ENCOUNTER 2025-01-22 01:52 | Outpatient (CLI) | payer MEDICARE, SELFPAY ==
[2025-01-22] MEDS: methylPREDNISolone SUCC 40 MG VIAL 60 MG IVP (09:44)
[2025-01-22] MEDS: Normal Saline Flush 10 ML SYR IVP (09:44)
[2025-01-22] MEDS: diphenhydrAMINE 25 MG CAP PO (09:45)
[2025-01-22] MEDS: Acetaminophen 325 MG TAB 650 MG PO (09:45)
[2025-01-22 10:20] LABS: Abs Immature Grans 0.02 10^3/uL (0.0-0.06); HCT 44.9 % (36.0-46.0); HGB 14.6 g/dL (11.2-15.7); Immature Grans % 0.2 %; MCH 30.5 pg (27.0-33.0); MCHC 32.5 % (32.0-36.0); MCV 94 fL (80-95); MPV 8.8 fL (8.0-11.0); Platelet Count 306 10^3/uL (130-400); RBC 4.79 10^6/uL (3.93-5.22); RDW 13.6 % (11.7-14.6); RDW-SD 46.7 fL; WBC 9.65 10^3/uL (4.4-10.8)
[2025-01-22 10:35] LABS: ALT 34 U/L (14-59); AST 22 U/L (15-37); Albumin 3.8 g/dL (3.4-5.0); Alkaline Phosphatase 80 U/L (46-116); Anion Gap 11.6 mmol/L (3-11); BUN 17 mg/dL (7-18); Bilirubin, Total 0.5 mg/dL (0.2-1.0); CO2 27.4 mmol/L (21.0-32.0); Calcium 9.3 mg/dL (8.5-10.1); Chloride 105 mmol/L (98-107); Estimated GFR 59.12 (mL/min/1.73m2); Glucose 93 mg/dL (74-106); Potassium 3.6 mmol/L (3.5-5.1); Sodium 144 mmol/L (136-145); Total Protein 7.5 g/dL (6.4-8.2)
== END 2025-01-22 01:53 | disposition home or self-care (01) ==
PROVIDERS: Student in an Organized Health Care Education/Training Program; PCP Family Medicine; Visit Provider Family Medicine
DX: M06.09 Rheumatoid arthritis without rheumatoid factor, multiple sites (principal)
CPT/HCPCS: 36415; 80053; 96365; 96374; 96375; 85025; J2919; J3262

== ENCOUNTER 2025-01-31 11:49 | Outpatient (CLI) | payer MEDICARE, SELFPAY ==
--- NOTE | 2025-01-31 11:00 | DI.RAD_ITS ---
Exam(s) XR HIP LT COMPLETE AP PELVIS EXAM: XR HIP LT COMPLETE AP PELVIS CLINICAL HISTORY: OA L HIP. TECHNIQUE: 2D digital imaging was performed. Two views. COMPARISON: CR XR HIP LT COMPLETE AP PELVIS from 09/21/2023 FINDINGS: BONES: No acute fracture is present. No bony destructive lesion is seen. JOINTS: No dislocation present. The SI joints and pubic symphysis are intact. There is severe narrowing of the left hip joint space, with a [id number] appearance. There are multiple subchondral cysts on both sides of the joint is where less periarticular spurring. Findings have progressed when compared with the prior exam. The right hip joint space is maintained. SOFT TISSUE: Normal. IMPRESSION: Severe degenerative changes of the left hip. DATA REPOSITORY: RADIATION DOSE DELIVERED:
== END 2025-01-31 11:50 | disposition home or self-care (01) ==
LOC: DIORS 11:49
PROVIDERS: PCP Family Medicine; Visit Provider Physician Assistant
DX: Z01.818 Encounter for other preprocedural examination (principal); M16.12 Unilateral primary osteoarthritis, left hip
CPT/HCPCS: 99024; 73502

== ENCOUNTER 2025-02-26 05:49 | Day surgery (SDC) | payer MEDICARE, SELFPAY ==
[2025-02-26] VITALS (25 sets, daily range): BP systolic 89–145; BP diastolic 50–88; PULSE 74–88; RESP 10–34; TEMP 36–36.5; O2SAT 95–100; BMI 27.1
[2025-02-26] MEDS: Celecoxib 200 MG CAP 400 MG PO (06:18)
[2025-02-26] MEDS: Acetaminophen 500 MG TAB 1000 MG PO ×2 (06:18→10:37)
[2025-02-26] MEDS: Lactated Ringers 1,000 ML 80 ML IV (06:31)
--- NOTE | 2025-02-26 06:58 | W.ANESPRE ---
General Info Date of Service Date Performed: 02/26/25 Height: 5 ft 4.5 in Weight: 72.9 kg Body Mass Index (BMI): 27.1 Surgical Procedure: Operation Date: 02/26/25 07:50 Proposed Procedure Side Surgeon p Hip Total Hip Anterior, ACTIS Left Jerome Roth MD Meds Allergies and Home Medications Allergies Allergy/AdvReac Type Severity Reaction Status Date / Time No Known Allergies Allergy Verified 02/26/25 06:14 Home Medication Medication Instructions Recorded cod liver oil 1 cap PO DAILY 01/17/18 folic acid 1 mg tablet 1 mg PO DAILY 01/17/18 vitamin B complex (B Complex 1 1 tab PO DAILY 01/17/18 tablet) atorvastatin 10 mg tablet 10 mg PO DAILY 07/13/20 methotrexate (PF) 10 mg/0.4 mL 10 mg subcut QWEEK 03/27/23 subcutaneous auto-injector prednisone 5 mg tablet 5 mg PO DAILY 01/25/24 calcium carbonate 600 mg PO DAILY 07/05/24 cholecalciferol (vitamin D3) 25 25 mcg PO DAILY 08/07/24 mcg (1,000 unit) capsule hydroxychloroquine 200 mg tablet 200 mg PO DAILY 01/31/25 (Plaquenil) tocilizumab 162 mg/0.9 mL 162 mg subcut QMONTH 01/31/25 subcutaneous pen injector Current Visit Medications: Current Medications Generic Name Dose Route Start Last Admin Trade Name Freq PRN Reason Stop Dose Admin Acetaminophen 1,000 mg 02/26/25 06:00 02/26/25 06:18 Acetaminophen 500 Mg Tab PO 02/26/25 23:59 1,000 mg PREOP NARCISO Administration Celecoxib 400 mg 02/26/25 06:00 02/26/25 06:18 Celecoxib 200 Mg Cap PO 02/26/25 23:59 400 mg PREOP NARCISO Administration Ringer's Solution 1,000 mls @ 80 mls/hr 02/26/25 06:00 02/26/25 06:31 IV 02/26/25 23:59 80 mls/hr INFUSION NARCISO Administration Cefazolin Sodium/Dextrose 2 gm in 50 mls @ 100 mls/hr 02/26/25 06:00 Ancef Duplex IVPB 02/26/25 23:59 PREOP NARCISO Tranexamic Acid/Sodium Chloride 1,000 mg in 100 mls @ 600 mls/hr 02/26/25 06:00 IVPB 02/26/25 23:59 PREOP NARCISO IV Miscellaneous Supplies 1 each 02/26/25 06:00 Iv Access IV 02/26/25 23:59 DIRECTED NARCISO Sodium Chloride 0 ml 02/26/25 06:00 Normal Saline Flush 10 Ml Syr IV 02/26/25 23:59 PRN PRN Sodium Chloride 0 ml 02/26/25 06:00 Normal Saline 10 Ml Vial IJ 02/26/25 23:59 DIRECTED PRN Sterile Water 0 ml 02/26/25 06:00 Water,Injection,Sterile 10 Ml Vial IJ 02/26/25 23:59 DIRECTED PRN PFSH Active Problems Active Problems: Problem Status Onset Code Small fiber neuropathy Acute G62.9 Neuropathy Acute G62.9 Iliotibial band syndrome of left side Acute M76.32 Trochanteric bursitis, left hip Acute M70.62 Osteoarthritis of left hip Acute M16.12 Right ankle sprain Acute S93.401A Rheumatoid arthritis flare Acute M06.9 Bilateral hand pain Acute M79.641, M79.642 Medical History Medical History Bunion Rheumatoid arthritis Interstitial lung disease Residual hemorrhoidal skin tags Carpal tunnel syndrome Insomnia Tobacco user Hyperlipidemia Surgical History Surgical History S/P excision of ganglion cyst elbow Tobacco Smoking/Tobacco Use Status: Former Tobacco Use Passive smoking exposure: Yes Alcohol Alcohol Intake: current Alcohol intake frequency: a few times a week Substance Use Substance use: Occasionally Substance use type: marijuana Details: patient used marijuana before bed 02/25 Vital Signs and Lab Results Vital Signs Most Recent Vital Signs in EMR: Most Recent Vital Signs Temp Pulse Resp BP Pulse Ox 36.3 C L 75 16 118/74 96 02/26/25 06:08 02/26/25 06:08 02/26/25 06:08 02/26/25 06:08 02/26/25 06:08 Anesthesia Assessment and Plan Anesthesia History Personal History: No History of Anesthesia Complications Family History: No Family History of Anesthesia Complications Exercise Tolerance Exercise Tolerance: Metabolic Equivalents>4 Pertinent Negatives Pertinent Negatives: No Major Cardiovascular Symptoms or Complaints and No Major Pulmonary Symptoms or Complaints Cardiac & Pulmonary Exam Cardiac Exam: Normal S1/S2 Heart Sounds Pulmonary Exam: Clear Bilateral Breath Sounds Implantable Cardiac Device Does patient have a Pacemaker or an ICD?: No Airway Exam Known Difficult Airway: No Mallampati Class: 3 Mouth Opening: Narrow (< 3cm) Thyromental Distance: Greater than 3 cm Neck Range of Motion: Full ROM Neck Circumference: Normal Teeth Condition: Normal Dentition ASA Classification ASA Score: ASA 2 Emergency Case?: No NPO Status NPO Status: NPO Clears >2 hours, Solids >8 hours Anesthesia Plan Resuscitation Status: Full Code Anesthesia Technique: Spinal Anesthesia Airway Planned: Natural Airway Monitors Used: Standard Monitors
--- NOTE | 2025-02-26 07:23 | W.PM.DSUDISC ---
Date of service: 02/26/25 Discharge Plan Disposition Patient Disposition: Home Condition: Good Discharge Details Reason For Visit: L THR Attending Provider: Jerome Roth Primary Care Provider: Isaura Pagan Home Meds and New Rx's Prescriptions: New acetaminophen 500 mg tablet 1,000 mg PO TID Qty: 90 3RF aspirin 81 mg tablet,delayed release (DR/EC) 81 mg PO BID Qty: 60 0RF celecoxib 200 mg capsule 200 mg PO BID Qty: 60 0RF docusate sodium 100 mg capsule 100 mg PO BID PRNQty: 28 0RF pantoprazole 40 mg tablet,delayed release (DR/EC) 40 mg PO DAILY Qty: 14 0RF oxycodone 5 mg tablet 5 mg PO Q4H MDD 6 tabs PRN (Reason: pain) Qty: 12 0RF Continued vitamin B complex [B Complex 1] tablet 1 tab PO DAILY cod liver oil capsule 1 cap PO DAILY folic acid 1 mg tablet 1 mg PO DAILY prednisone 5 mg tablet 5 mg PO DAILY cholecalciferol (vitamin D3) 25 mcg (1,000 unit) capsule 25 mcg PO DAILY tocilizumab 162 mg/0.9 mL pen injector 162 mg subcut QMONTH atorvastatin 10 mg tablet 10 mg PO DAILY methotrexate (PF) 10 mg/0.4 mL auto-injector 10 mg subcut QWEEK calcium carbonate 600 mg calcium (1,500 mg) tablet 600 mg PO DAILY hydroxychloroquine [Plaquenil] 200 mg tablet 200 mg PO DAILY Discharge Instructions Additional Instructions: Total Hip Discharge Instructions Activity: The most important activity is to walk. You should try to take short walks a few times a day. You have no restrictions on movement or positioning, but do not try to force what you do. You will find some stiffness and weakness with hip flexion (lifting your knee). Do not try to strengthen this too early, continue to practice walking and stairs and this will come. - Outpatient physical therapy can be helpful to help return you to a normal gait and improve your flexibility and strength. This can start around 2 weeks. For some patients, it´s not necessary. Usually this is determined at the time of discharge or at the first post-operative visit. - You should wear the ROCIO hose on both legs for 2 weeks. Dressing: Keep the surgical dressing in place for at least one week. After the first week it may be removed and replace with light gauze and tape or nothing. It may get wet after 3 days but avoid soaking the dressing. If it gets wet, just lightly pat dry. It is important to always keep some gauze between skin folds, especially when you are sitting. Spend some time with the wound exposed when you are lying flat as the incision does wrinkle onto itself. Medications: - You should take Tylenol and an anti-inflammatory Celebrex as your primary pain control medications. If the Celebrex is too expensive or not covered, please call the office for another alternative (Advil/Ibuprofen or Naproxen/Aleve). - You have been prescribed a stronger pain medication Oxycodone for breakthrough pain, take as needed as prescribed. - You have also been prescribed a stomach acid reduction agent Pantoprozole to help reduce stomach acid and reflux. - You will be taking Aspirin 81mg twice a day for DVT prevention unless instructed otherwise. - If you have constipation you should take Colace or Miralax (both [id number]-hog-[id number]). It takes most people 3-4 days to have a bowel movement. Follow-up: 2 weeks If you have any acute concerns or questions, please do not hesitate to contact the office at [phone]. You may contact Dr. Roth with any questions after hours through the hospital at [phone] or on his cell phone at [phone]. Stand Alone Forms: Anesthesia Discharge Inst., Nickie Brannon ([facility]), Portal Information Referrals: Jerome Roth MD [ [facility] STAFF PHYSICIAN, Orthopaedic Surgical] - 03/10/25 2:00 pm Equipment/Supplies: Walker Activity:: Activity as Tolerated Shower/Bathe:: 72 hours Diet:: As Tolerated Discharge Orders Discharge Orders: Discharge Order (Routine); Ordered 02/26/25 Ordered By: Saleem Dixon DS: Diagnosis Discharge Diagnosis (1) Osteoarthritis of left hip: Status: Acute
[2025-02-26] MEDS: ceFAZolin 2 GM/50 ML BAG IVPB (07:59)
[2025-02-26] MEDS: TRANEXAMIC ACID/SOD. CHL. 1,000 MG/100 ML BAG 600 MG IVPB (08:04)
[2025-02-26] MEDS: EPINEPHrine 1 MG/ML AMP pres-free (08:21)
[2025-02-26] MEDS: Ketorolac 30 MG/ML VIAL (08:22)
[2025-02-26] MEDS: ROPIvacaine 0.2% 200 MG/100 ML BAG (08:22)
--- NOTE | 2025-02-26 09:00 | DI.RAD_ITS ---
Exam(s) XR HIP LT IN OR EXAM: XR HIP LT IN OR CLINICAL HISTORY: Osteoarthritis of left hip. TECHNIQUE: 2D and realtime digital imaging was performed. COMPARISON: CR XR HIP LT COMPLETE AP PELVIS from 01/31/2025 FINDINGS: Hard copy images show placement of the left hip prosthesis. The alignment appears satisfactory. Please see procedure note for details. Fluoro time: 25.6seconds RADIATION DOSE DELIVERED: Ka,r=2.6 mGy
--- NOTE | 2025-02-26 09:16 | W.PM.OP ---
Operative Note Operative Note PRE-OP DIAGNOSIS: Left Hip Osteoarthritis POST-OP DIAGNOSIS: same PROCEDURE: Left Anterior Total Hip Arthroplasty with Intraoperative Navigation SURGEON: Jerome Roth COMPUTER SYSTEMS DESIGNER: Saleem Dixon ANESTHESIA TYPE: Spinal Refer to Anesthesia Record ESTIMATED BLOOD LOSS: 100 PATHOLOGY: none sent TOURNIQUET TIME: 0 COMPLICATIONS: None Patient was transported to: PACU Patient's condition: stable Implants: 1. Depuy Emphasys Acetabular Component, 48mm 2. Depuy Acetabular Liner, 21n78gr 3. Depuy Actis High Offset Collared Femoral Stem, Size 5 4. Depuy Altrx Ceramic Femoral Head, Size 36+1.5mm Indications: I have seen Inez in clinic for symptoms of hip arthritis, confirmed with radiographic findings. Inez has exhausted nonoperative methods and was having significant limitations in daily function and desired better function and less pain. I discussed the technical details of a hip replacement. I explained the risks of the procedure to include, but not limited to, bleeding, infection, pain, stiffness, fracture, damage to nerves and vessels, damage to muscles and tendons, loosening, instability, leg length inequality, need for repeat procedure, blood clot and cardiopulmonary demise. Despite these risks, she elected to proceed. Findings: There was significant signs of arthritis throughout the hip. Procedure Description: Inez was greeted in the preoperative holding area where the correct side was identified and marked. The consent was reviewed with the patient and signed. The history and physical was updated. All questions were answered. She was taken back to the operating room. A spinal anesthestic was then administered. The feet were wrapped with cast padding and Coban and then placed into the boot liners and then into the boots. Care was taken to protect the skin and make sure the heels were fully down and the boots were stable. The patient was then positioned onto the HANA table. Both legs were held in a neutral position. SCDs were applied. The patient was then slid down onto a peroneal post. Prophylactic antibiotics in the form of Cefazolin were administered. 1g of Tranxemic Acid was given intravenously within 30 minutes of incision. The left leg was then prepped with Chloraprep and draped in a standard fashion. A second prep with Chloraprep was performed prior to placement of a shower-curtain type drape with Iodine impregnated skin protection. A timeout to confirm correct identity, side and site, procedure, allergies, anesthesia, and medical concerns was performed. An obliquely oriented incision was made starting lateral to the ASIS and running distal over the Tensor Fascia Estephanie (TFL) muscle belly toward the fibular head, approximately 10cm. The skin and soft tissue was dissected sharply, through Suzan´s fascia, and to the fascia of the TFL. With the fascia and superior border of the IT band identified, the fascia was incised with a new knife just above any perforators from the IT band. The TFL muscle belly was bluntly dissected away from the fascia and moved laterally. The fat between TFL and rectus was identified to ensure the dissection was not within the TFL. Blunt dissection created space between abductors and the capsule and retractor was placed over the lateral femoral neck. The fibers of the rectus femoris tendon were identified and these were freed from the anterior capsule. A second cobra retractor was placed around the medial femoral neck. The TFL was further retracted laterally to show the deep fascia. Careful dissection through this layer identified three main crossing vessels of the lateral femoral circumflex. These were cauterized in multiple locations and then cut without any noticeable bleeding. The TFL was further released bluntly from the deep fascia to expose anterior hip capsule and fat The soft tissue orthopaedic retractor was then placed beneath the TFL and against sartorius and medial soft tissues to protect and retract the soft tissues. A T-capsulotomy was then performed starting at the superior lateral acetabulum and moving distally to the intertrochanteric ridge. These capsular flaps were tagged with a No. 1 Vicryl and elevated from within. The capsular flaps were released to the shoulder of the lateral neck and to the lesser trochanter to give excellent visualization of the proximal femur. A neck osteotomy was performed using an oscillating saw based on preoperative templates. This cut started in the shoulder and of the lateral neck and exited medially. The saw was at all times directed medially to avoid injury to the greater trochanter. Gross traction was applied to the leg and the osteotomy opened. The femoral head was removed with a corkscrew, making sure to protect the TFL on its exit. Traction was released after head removal. This was measured on the back table to determine the starting reamer size. Portions of the rectus obscuring visualization were minimally elevated off the superior acetabulum. An anterior retractor was placed over the anterior wall between capsule and labrum and attached to the Gripper retraction system. The femur was rotated to 90 degrees and medial capsule was fully released until the lesser trochanter was palpable and visible; the femur was returned to 30 degrees. A posterior retractor was placed similarly between capsule and labrum. This provided excellent visualization. The contents of the cotyloid fossa were removed with electrocautery and the labrum was removed with a knife. There was a notable floor osteophyte. There was significant chondromalacia of the superior acetabulum. Acetabular reaming began with a 44mm reamer. This first reaming was directed anterior to posterior and medial to get down to the true floor. This was inspected and reamed until the true floor was reached. The anterior retractor was then released and entry and exit was provided by traction on the capsular flaps. I then reamed sequentially up to a 48mm reamer where good fit was obtained. The larger reamers were oriented based on anatomical reference of the anterior and lateral tariq to ensure proper abduction and anteversion. Positioning and size was confirmed with the fluoroscopy. A 48mm Depuy Emphasys acetabular component was selected. The acetabulum was reamed around the periphery with the selected acetabular size to prevent a rim fit. The deep tissues were irrigated. The acetabular component was then impacted in a position of about 40-45 degrees of abduction and 15-20 degrees of anteversion, using the patient´s anatomy as the ultimate landmark. Fluoroscopy was used to confirm this. There was excellent drop wire stringer of the acetabular component and the inserting handle was removed. The acetabular liner, Depuy [id number] polyethylene liner, was inserted and lined up with the tines of the acetabular component. There was no soft tissue interposition. The liner was then impacted into position and confirmed to be well-seated. A portion of the law-articular cocktail was then injected around the acetabulum into the capsule and periosteum. This cocktail consisted of 123mg of Ropivacaine, 0.25mg of Epinephrine, 0.04mg of Clonidine, and 15mg of Ketorolac, diluted to 50cc. The leg was rotated to 120 degrees. Any remaining medial capsule was released until the lesser trochanter was easily palpable. A retractor was placed medially. The lateral capsule was further released into the shoulder to allow access to the greater trochanter. A Barron retractor was placed over the greater trochanter which allowed the trochanter to flip in front of the capsule for excellent exposure. The leg was brought down into maximal extension and 20 degrees of adduction while ensuring there was no impingement on the acetabulum. Any remnant capsule within the trochanter was released. Piriformis and obturator externis were identified and protected. There was excellent access to the proximal femur. The lateral neck remnant was removed with a rongeur. A blunt canal probe was used to identify the canal and trajectory for later broaching. A box osteotome initiated the broach course. A small curved rasp and a curved curette were used to work laterally. Broaching then began with a starter Actis broach. This was inserted manually around the trochanter and into the canal before mallet blows. The broach was seated to a few millimeters below the cut level based on the neck cut and the preoperative template. Sequential broaching was continued with the [employer] pneumatic broaching device until a tight fit was obtained with good rotational control of the femur. A trial high offset neck was inserted along with a +5 trial head. The leg was brought out of extension and adduction and then reduced with traction and internal rotation. The leg was stable anteriorly in a position of 30 degrees of extension and 90 degrees of external rotation. Fluoroscopy was used to ensure there was no fracture and the stem was seated well. Leg lengths were checked with an AP pelvis and pelvic reference points. MedTel24 navigation system was used to confirm appropriate positioning and leg length and offset. This slightly overcorrected limb length and offset. Once content with the desired offset and leg lengths, the leg was brought back into extension, external rotation and adduction. The periosteum and surrounding tissue was injected with remaining portion of the law-articular cocktail. The proximal femur was irrigated as well as the deep tissues. The ZootRock[employer] Actis high offset collared stem, size 5, was then manually inserted into the proximal femur making sure to control rotation. It was then malleted into position with light blows, giving breaks to allow bone expansion and decrease risk of fracture. The selected Depuy Altrx Ceramic Head, size 36+1.5mm, was then placed onto the clean and dry trunnion and secured with impaction onto the tapered fit. The leg was brought back out of extension and adduction and reduced with traction and internal rotation. Stability was confirmed with no shuck at 90 degrees of external rotation and 30 degrees of extension. No impingement through range of motion arc. Final x-ray images were obtained with fluoroscopy to confirm adequate positioning and no intraoperative fracture. The deep tissues were thoroughly irrigated with Surgiphor, betadine solution. This was allowed to sit in the wound for 3 minutes before being thoroughly irrigated out with normal saline. The capsule was then reapproximated with the previously placed sutures and the indirect head of the rectus was inspected and reapproximated with a #1 Vicryl. The TFL fascia was finally closed with a No. 2 Stratafix, barbed suture. Deep tissues were then reapproximated with 0 Vicryl and a running 2-0 Vicryl. The skin was closed with a running 4-0 Monocryl in a subcuticular fashion. This was reinforced with skin glue. A Mepilex silver dressing was applied. At the end of the case, all counts were correct. Inez was transferred to the hospital bed without difficulty and suffering no apparent complication. Inez has a good prognosis. Physical therapy will start today and without restrictions, weight-bearing as tolerated. Aspirin 81mg BID will be used for DVT prophylaxis. Date of Procedure: 02/26/25
[2025-02-26] MEDS: HYDROmorphone 2 MG/ML SYR IVP ×3 (09:39→10:00)
[2025-02-26] MEDS: fentaNYL 100 MCG/2 ML VIAL IVP (09:55)
--- NOTE | 2025-02-26 10:11 | W.ANESPOSTOP ---
Postoperative Evaluation Date, Time and Location Date Performed: 02/26/25 Time Performed: 10:11 Patient Location: PACU Vital Signs Most Recent Imported Vital Signs: Most Recent Vital Signs Temp Pulse Resp BP Pulse Ox 36.2 C L 77 17 120/80 100 02/26/25 10:05 02/26/25 10:06 02/26/25 10:06 02/26/25 10:05 02/26/25 10:06 Pain Score Most Recent Pain Score: Most Recent Pain Score Pain Level 3 02/26/25 10:03 Assessment Mental Status: Awake (Alert & Oriented to Patient Baseline) Airway and Respiratory Function: Patent airway with normal (patient baseline) respiratory exam Cardiovascular Function: Hemodynamically Stable Hydration Status: Adequately Hydrated Nausea & Vomiting: No Nausea or Vomiting Pain: Pain is Moderate or Severe Postoperative Pain Management: Pain being addressed with medication Peripheral Nerve Block: Patient did not receive a nerve block
--- NOTE | 2025-02-26 12:16 | IN_ITS ---
PT Notes Visit Reasons: L THR Physical Therapy Day Surgery Initial Evaluation Date: 02/26/2025 Referring Doctor: Saleem MEJIA PT Orders: PT CONSULT: Day surgery Eval Precautions: LLE WBAT, L SOPHIA Patient Profile/Admitting Diagnosis: 75-year-old female had a L SOPHIA on 02/26/2025 with spinal anesthesia. PMHX: Small fiber neuropathy (Acute) Neuropathy (Acute) Iliotibial band syndrome of left side (Acute) Trochanteric bursitis, left hip (Acute) Osteoarthritis of left hip (Acute) POCUS INJECTION: 11/08/2024; 08/07/2024; 01/25/2024 Fluoroscopy injection: 01/18/2018Right ankle sprain (Acute) Rheumatoid arthritis flare (Acute) Bilateral hand pain (Acute) Medical History Bunion Rheumatoid arthritis Interstitial lung disease Residual hemorrhoidal skin tags Carpal tunnel syndrome Insomnia Tobacco user Hyperlipidemia Surgical History S/P excision of ganglion cyst elbow Social History/Home Situation: Pt live in a single-family home with 3 [address] and railings on both sides. Pt has everything she needs on first floor. Pt has railings/grab bars in her bathroom and a shower seat. Equipment Owned/DME: [facility] Subjective: Pt reported feeling relaxed and comfortable. Pt feeling a mild nausea when standing up, but not enough to needing to sit down. Objective: General Observation: Pt jokingly pretended to be asleep as PT entered. Pt laying in bed with ice pack on left hip. Mental Status: alert and oriented x4. Pt able to follow commands and agreeable to participate. Informed Consent/Education: Patient instructed in purpose of PT consult. Packet containing SOPHIA exercise protocol has been given to patient. Education and training on initial set of exercises that can be done at home have been completed with patient. Pain: 3/10 in left hip ROM: Right Upper Extremity: WFL Left Upper Extremity: WFL Right Lower Extremity: WFL Left Lower Extremity: WFL Strength: Right Upper Extremity: 5/5 Left Upper Extremity: 5/5 Right Lower Extremity: 5/5 Left Lower Extremity: 3+/5 grossly Sensation: intact Therapeutic activity 82006: Bed Mobility/Transfers: Supine to sit supervision Sit to stand supervision Stand to sit supervision Bed to chair supervision FWW. Pt needed moderate cueing from proper foot sequence during ambulation Stairs: CGA, 2x Two six-inch steps and three four-inch steps supervised with railing on both side. Pt needed moderate cueing from proper foot sequence during stairs Gait: Pt ambulated 98 feet FWW with supervision. Pt needed repetitive cueing for foot sequence Therapeutic Exercises: Ankle pumps: 1x5 LAQ: 1x5 Moderate contraction, with no quad lag Heel slides: 1x5 Quad contraction: 1x5 Glute contraction: 1x5 Balance: Static Sitting: good Dynamic Sitting: good Static Standing: good Dynamic Standing: good with one UE support Special Tests: Mobility Limitations Standardized Measure [facility] [place] AM-PAC 6 clicks Basic Mobility Inpatient Short Form: Raw Score: 22 CMS Score: 20.91% deficit Assessment: Pt able to ambulate 98 feet with FWW with supervision and perform stairs with railings on both sides with CGA. Pt needed moderate cueing for proper foot sequence and hand placement. During ambulation pt had decreased mary, step height, and step length. Pt had generalized weakness for her LLE. Pt will perform HEP until follow up appointment with surgeon. Patient presents with clinical signs and symptoms consistent with current/admitting diagnoses that have resulted to mobility limitations, gait instability, generalized weakness, and impairment of motor control as demonstrated by the following impairment level findings: 1. Decreased strength to left hip major muscle groups 2. Impaired standing balance 3. Limitation of joint range of motion in left hip 4. pain 5. decreased activity tolerance Impairments are contributing to the following functional limitations: 1. Inability to safely ambulate without assistive device 2. Increase completion time for mobility ADL performance 3. Increased fall risk 4. difficulty with stairs Patient is assessed as a Low complexity based on the following: History: 75-year-old female with impairment level findings, functional limitations, and past medical history as indicated above Examination: Demonstrable impairment in strength, balance, and mobility level with underlying impairments and functional limitations as documented above Presentation: Stable/Evolving Decision Making: Low Goals: N/A. PT evaluation and 1-2 treatment sessions only for functional mobility training using recommended AD and for HEP instruction. Plan of Care/Treatment Plan: N/A. PT evaluation and 1-2 treatment session only for functional mobility training using recommended AD and for HEP instruction. DISCHARGE RECOMMENDATIONS: Home with HEP until follow up appointment with surgeon. TREATMENT CODE/TIME: 68267 for 1 unit,26742 for 2 units/11:20am-12:00pm Written by: Alessandro Dye DPTS Supervised by: Gabrielle Mcnamara, PT Thank you for the opportunity to participate in the care of this patient. [facility]
== END 2025-02-26 12:23 | disposition home or self-care (01) ==
PROVIDERS: PCP Family Medicine; Visit Provider Student in an Organized Health Care Education/Training Program
PROC: (CPT 27130; principal; 2025-02-26 07:30)
DX: M16.12 Unilateral primary osteoarthritis, left hip (principal); M06.9 Rheumatoid arthritis, unspecified; J84.9 Interstitial pulmonary disease, unspecified; M70.62 Trochanteric bursitis, left hip; M76.32 Iliotibial band syndrome, left leg
CPT/HCPCS: 20985; 27130; 97161; 97530; 73501; C1776; J0166; J0690; J1171; J1885; J2003; J2250; J2371; J2401; J2405; J2704; J2795; J3010

== ENCOUNTER 2025-03-10 14:36 | Outpatient (CLI) | payer MEDICARE, SELFPAY ==
--- NOTE | 2025-03-10 13:45 | DI.RAD_ITS ---
Exam(s) XR HIP LT COMPLETE AP PELVIS EXAM: XR HIP LT COMPLETE AP PELVIS CLINICAL HISTORY: 1ST POST OP S/P L SOPHIA. TECHNIQUE: 2D digital imaging was performed. Two images were obtained. AP pelvis and lateral left hip views were obtained. COMPARISON: CR XR HIP LT COMPLETE AP PELVIS from 01/31/2025 XA XR HIP LT IN OR from 02/26/2025 FINDINGS: BONES: There are stable post operative changes of a left total hip arthroplasty present. No fracture or dislocation. JOINTS: The orthopedic hardware is in good position. No evidence of hardware loosening. SOFT TISSUE: Normal. There is a well corticated osseous density lateral to the proximal left femur which appears old. IMPRESSION: Stable left total hip arthroplasty. DATA REPOSITORY: RADIATION DOSE DELIVERED:
--- NOTE | 2025-03-10 14:30 | DI.RAD_ITS ---
Exam(s) XR HAND RT COMPLETE EXAM: XR HAND RT COMPLETE CLINICAL HISTORY: pain/arthritis. TECHNIQUE: 2D digital imaging was performed of the right hand. Three images were obtained. AP, lateral and oblique views were obtained. COMPARISON: CR XR ARTHRITIS SERIES from 07/13/2020 FINDINGS: BONES: No acute fracture is present. No bony destructive lesion is seen. JOINTS: There now erosions seen involving the heads of the 2nd and 3rd meta carpal bones. There also mild subluxations of the 2nd through 4th MCP joints. There is joint space narrowing seen of the 2nd through 5th MCP joints. The findings are most concerning for an inflammatory arthritis. There is mild joint space narrowing again seen in the interphalangeal joints. SOFT TISSUE: There are no soft tissue calcifications. IMPRESSION: Erosions, joint space narrowing and subluxations of the metacarpophalangeal joint suspicious for an inflammatory arthritis.Rheumatoid arthritis should be considered. DATA REPOSITORY: RADIATION DOSE DELIVERED:
== END 2025-03-10 14:37 | disposition home or self-care (01) ==
LOC: DIORS 14:36
PROVIDERS: PCP Family Medicine; Visit Provider Student in an Organized Health Care Education/Training Program
DX: Z47.1 Aftercare following joint replacement surgery (principal); Z96.642 Presence of left artificial hip joint; M19.041 Primary osteoarthritis, right hand
CPT/HCPCS: 99213; 73130; 73502

== ENCOUNTER → 2025-03-27 00:37 | Outpatient (CLI) | payer MEDICARE, SELFPAY ==
--- NOTE | 2025-03-27 | DI.CT_ITS ---
Exam(s) CT CHEST HIGH RESOLUTION EXAM: CT CHEST HIGH RESOLUTION CLINICAL HISTORY: RHEUMATOID ARTHRITIS MULTIPLE SITES W/O RHEUMATOID FACTOR, INTERSTITIAL. TECHNIQUE: Imaging protocol: Axial computed tomography images were obtained and coronal and sagittal reformatted images were created and reviewed. Computer aided detection (CAD) was utilized. 1 millimeter high-resolution images were obtained in expiration. CONTRAST MATERIAL: Noncontrast COMPARISON: CT CT CHEST LUNG CANCER SCREEN from 09/29/2022 FINDINGS: Pulmonary parenchyma: No consolidation. No suspicious nodules. No ground-glass opacities. Interstitial changes: Coarsening of the interstitium noted greater peripherally and greater at the lung bases. There is mild peripheral honeycombing. Findings have mildly progressed when compared with the previous exam Emphysema: Minimal. Tracheobronchial tree: No mucous plugging. There is mild traction bronchiectasis at the lower lobes. Pleura: No effusion or pneumothorax. Heart: The heart is not dilated. The coronary arteries show mild calcifications. Aorta: Thoracic aorta non-dilated. Minimal atherosclerotic changes. Lymph nodes: No enlarged lymph nodes. Bones: Degenerative changes are seen. No evidence of compression fracture. Upper abdomen: Unremarkable. Soft tissues: Unremarkable. IMPRESSION: Mild interval progression of peripheral interstitial disease greater at the lung bases. Mild traction bronchiectasis. RADIATION DOSE DELIVERED: Total DLP DATA REPOSITORY: All CT scans at this facility are submitted to the National Radiology Data Registry (NRDR) Dose Index Registry (DIR) with the [employer] ([employer]). RADIATION OPTIMIZATION: All CT scans at this facility use at least one of these dose optimization techniques: automated exposure control; mA and/or kV adjustment per patient size (includes targeted exams where dose is matched to clinical indication); or iterative reconstruction.
== END ==
LOC: DI 00:38
PROVIDERS: PCP Family Medicine; Visit Provider Student in an Organized Health Care Education/Training Program
DX: M06.09 Rheumatoid arthritis without rheumatoid factor, multiple sites (principal); J84.112 Idiopathic pulmonary fibrosis
CPT/HCPCS: 71250

== ENCOUNTER → 2025-04-07 14:21 | Outpatient (BNVA) | payer MEDICARE, SELFPAY | PROVIDERS: PCP Family Medicine; Referring Provider Family Medicine; Visit Provider Student in an Organized Health Care Education/Training Program | DX: Z47.1 Aftercare following joint replacement surgery (principal); Z96.642 Presence of left artificial hip joint; M21.941 Unspecified acquired deformity of hand, right hand; M06.041 Rheumatoid arthritis without rheumatoid factor, right hand | CPT/HCPCS: 99213 ==

== ENCOUNTER 2025-04-09 02:29 | Outpatient (CLI) | payer MEDICARE, SELFPAY ==
[2025-04-09] MEDS: methylPREDNISolone SUCC 125 MG VIAL 60 MG IVP (10:34)
[2025-04-09] MEDS: Acetaminophen 325 MG TAB 650 MG PO (10:34)
[2025-04-09] MEDS: diphenhydrAMINE 25 MG CAP PO (10:39)
[2025-04-09 10:43] VITALS: BP 132/84; PULSE 81; RESP 18; TEMP 36.4; O2SAT 98
[2025-04-09 12:32] VITALS: BP 124/82; PULSE 81; RESP 18; TEMP 37.3; O2SAT 94
== END 2025-04-09 02:30 | disposition home or self-care (01) ==
LOC: INF 02:29
PROVIDERS: PCP Family Medicine; Visit Provider Nurse Practitioner Acute Care
DX: M06.09 Rheumatoid arthritis without rheumatoid factor, multiple sites (principal)
CPT/HCPCS: 96365; J2919; J3262